=== PATIENT | male | born 1995 | race Caucasian/White ===

== ENCOUNTER 2020-11-01 21:27 | Emergency (ER) | payer OTHER, SELFPAY ==
[2020-11-01 22:49] LABS: HBSAB Concentration 245.17 mIU/mL; HIV (1/2) Antibody/Antigen Non-Reactive (NonReactive); HIV 1/2 INDEX 0.09 S/CO (<1.00); Hep B Surf AB Reactive (NonReactive); Hep C IgG Ab Non-Reactive (NonReactive); Hep C Index 0.08 S/CO (0-0.79)
== END 2020-11-01 22:45 | disposition home or self-care (01) ==
LOC: ERS 21:27
DX: Z77.21 Contact with and (suspected) exposure to potentially hazardous body fluids (principal)
CPT/HCPCS: 36415; 86706; 86803; 87389; 99283